=== PATIENT | male | born 1955 | race Caucasian/White ===

== ENCOUNTER 2016-11-30 09:20 | Emergency (ER) | payer OTHER ==
[2016-11-30] MEDS ORDERED: predniSONE 10 MG Tab ONE (09:30)
[2016-11-30 09:32] VITALS: BP 166/82
--- NOTE | 2016-11-30 10:11 | EDM.PDOC ---
ED HPI GENERAL MEDICAL PROBLEM - General Chief Complaint: Back Pain or Injury Stated Complaint: Back pain Time Seen by Provider: 11/30/16 09:30 Source of Information: Reports: Patient History Limitations: Reports: No Limitations - History of Present Illness INITIAL COMMENTS - FREE TEXT/NARRATIVE: Pt is a resident of [place], [place] here on fishing trip. Pt claims that he has had low back pain with pain in his left thigh and numbness of his left leg for a while. He is her as the pain has got slightly worse in the past 3-4 days now that [place] is on the boat. pain worse with standing and sitting, better with lying down. Pt claims short course or prednisone pack has helped him with his pain. he has epidural injection to the back scheduled for 12/04/16 in [place], [place]. He takes alleve for pain. Pt is not requesting any pain meds. No incontinence of stool or urine. No saddle numbness. Improves with: Reports: None Worsens with: Reports: None Associated Symptoms: Denies: Confusion, Cough, Fever/Chills, Rash, Seizure, Syncope, Weakness Treatments AGENT TICKETING GATE: Reports: Other (see below) Other Treatments AGENT TICKETING GATE: Aleve Left Back Pain Score (Numeric/FACES): 10 - Related Data Allergies Allergy/AdvReac Type Severity Reaction Status Date / Time No Known Allergies Allergy Verified 11/30/16 09:32 Home Meds: Home Meds NK [No Known Home Meds] 11/30/16 [History] ED ROS GENERAL - Review of Systems Review Of Systems: See Below Constitutional: Denies: Fever, Chills HEENT: Denies: Sinus Problem, Throat Pain, Throat Swelling Respiratory: Denies: Shortness of Breath, Cough, Sputum Cardiovascular: Denies: Chest Pain, Lightheadedness GI/Abdominal: Denies: Abdominal Pain, Nausea, Vomiting : Denies: Dysuria, Flank Pain Musculoskeletal: Reports: Back Pain. Denies: Joint Pain, Joint Swelling Neurological: Reports: Numbness, Tingling. Denies: Confusion, Dizziness, Paresthesia, Trouble Speaking, Difficulty Walking, Weakness, Change in Speech Psychiatric: Denies: Agitation, Anxiety ED EXAM, GENERAL - Physical Exam Exam: See Below Exam Limited By: No Limitations General Appearance: Alert, WD/WN, No Apparent Distress Eye Exam: Bilateral Eye: EOMI, PERRL Ears: Normal External Exam, Normal Canal, Hearing Grossly Normal, Normal TMs Ear Exam: Bilateral Ear: Auricle Normal, Canal Normal, TM normal Nose: Normal Inspection, Normal Mucosa, No Blood Throat/Mouth: Normal Inspection, Normal Lips, Normal Teeth, Normal Gums, Normal Oropharynx, Normal Voice, No Airway Compromise Head: Atraumatic, Normocephalic Neck: Normal Inspection, Supple, Non-Tender, Full Range of Motion Respiratory/Chest: No Respiratory Distress, Lungs Clear, Normal Breath Sounds, No Accessory Muscle Use, Chest Non-Tender Cardiovascular: Normal Peripheral Pulses, Regular Rate, Rhythm, No Edema, No Gallop, No JVD, No Murmur, No Rub Back Exam: Normal Inspection, Paraspinal Tenderness (left lumbar region). No: Vertebral Tenderness Extremities: Other (there is a linear scar over the lumbar spine from old fusion. No spinal tenderness. SLR is slightly limited on left. Absent knee jerk on hte left. Able to walk and weight bear. ) Course - Vital Signs Text/Narrative:: Pt has history of chronic left sided lower extremity pain and numbness, which probably has been exacerbated by his activity. I have started him on prednisone tapering dose. Starting 6 10mg tabs today and decrease by 1 tab daily for next 5 days. Avoid excessive bending twisting or lifting. Intermittent heat to the lower back. Pt does have appointment of back injection on 12/04/16 advised to keep it. Followup with his Primary care provider on friday. If symptoms worsen return to emergency room. Last Recorded V/S: Last Vital Signs Temp 97.8 F 11/30/16 09:27 Pulse 73 11/30/16 09:27 Resp 20 11/30/16 09:27 BP 166/82 H 11/30/16 09:27 Pulse Ox 100 11/30/16 09:27 Departure - Departure Time of Disposition: 10:15 Disposition: DC/[facility] to [facility] Condition: Good Clinical Impression: Lumbar radiculopathy, chronic - Discharge Information Instructions: Heat Therapy Referrals: PCP,Unknown [Primary Care Provider] - Forms: ED Department Discharge Additional Instructions: Day 1=6 pills Day 2=5 pills Day 3=4 pills Day 4= 3 pills Follow up with your provider to after your Friday dose to make sure you are going to get the injections. - Problem List & Annotations (1) Lumbar radiculopathy, chronic SNOMED Code(s): 653927419 Code(s): M54.16 - RADICULOPATHY, LUMBAR REGION Status: Acute - Problem List Review Problem List Initiated/Reviewed/Updated: Yes - Assessment/Plan Assessment:: Chronic left lumbar radiculopathy Plan: Pt has history of chronic left sided lower extremity pain and numbness, which probably has been exacerbated by his activity. I have started him on prednisone tapering dose. Starting 6 10mg tabs today and decrease by 1 tab daily for next 5 days. Avoid excessive bending twisting or lifting. Intermittent heat to the lower back. Pt does have appointment of back injection on 12/04/16 advised to keep it. Followup with his Primary care provider on friday. If symptoms worsen return to emergency room.
== END 2016-11-30 10:03 | disposition designated cancer center or children's hospital (05) ==
LOC: LB.ED 09:20
DX: M54.16 Radiculopathy, lumbar region (principal)
CPT/HCPCS: 99284; A9270